=== PATIENT | female | born 1995 | race African-American/Black ===

== ENCOUNTER 2018-02-26 18:44 | Emergency (ER) | payer BC, OTHER ==
[~2018-02-26] VITALS: Ht 170.2 cm; Wt 77.0 kg
[2018-02-26 18:51] VITALS: TEMP 37.1; Ht 170.2 cm; Wt 77.0 kg
--- NOTE | 2018-02-26 20:19 | DIAGNOSTIC IMAGING REPORT ---
CHEST 2 VIEWS ROUTINE CLINICAL HISTORY: Cough. Right back pain. Recent pneumonia. COMPARISON STUDY: No previous studies for comparison. FINDINGS: There is no pneumothorax or pleural effusion. Lung volumes are normal. Note is made of a 1.9 cm nodular airspace opacities within the right upper lobe with adjacent linear opacity. Cardiac size is normal. Mediastinal contours are normal. There is no evidence for pulmonary edema. IMPRESSION: 1.9 cm nodular airspace opacity within the right upper lobe with adjacent linear opacity. A small focus of pneumonia is favored. Radiographic follow up to ensure resolution is recommended to exclude the less likely possibility of a pulmonary nodule. Electronically signed by: Earl Alvarenga M.D. 02/26/2018 8:18 PM Dictated Date/Time: 02/26/2018 8:13 PM
[2018-02-26] MEDS ORDERED: DOXYCYCLINE HYCLATE 100 MG CAP PO STA (20:20)
[2018-02-26] MEDS ORDERED: DOXY100C76 PO (20:30)
--- NOTE | 2018-02-26 20:30 | EMERGENCY ROOM VISIT NOTE ---
History First contact with patient: 18:53 Chief Complaint: COUGH Stated Complaint: COUGHING PAIN IN BACK Nursing Triage Summary: PT presents with cough X 3 days, with sore throat. PT denies any mucous production, also has intermittent fever. lungs CTA at this time. History of Present Illness Patient is a 22-year-old female who presents the emergency department for evaluation of a cough and right back pain that started about 2 or 3 days ago. Patient reports that she was treated for pneumonia earlier this summer, she states between the end of November and January. She was apparently fairly ill on initial presentation and required hospitalization. She is unsure of the antibiotic regimen that she was treated with, and states that her symptoms did improve. She notes that she was supposed to have a follow-up chest x-ray to check to see if the pneumonia had cleared, but she did not have this prior to leaving [place] to return here to school. Patient also notes that she had her adenoids removed 1 week ago. She had some type of general anesthesia. She reports that the surgery was uncomplicated, and she was feeling well until she started to develop a dry, nonproductive cough in the last 2-3 days. She has pain in her right back with coughing, states that this is very similar to when she had pneumonia. She denies any chest pain, shortness of breath dyspnea on exertion or pleuritic pain with deep breathing. She has not documented any fevers. She rates her discomfort a 3/10. Review of Systems Review of systems as per HPI. All other systems reviewed were negative. 10 systems reviewed. Past Medical/Surgical History Medical Problems: (1) No Known Active Medical Problems Surgical Problems: (1) History of adenoidectomy Electronic medical records are reviewed and summarized as above/below. See Problem List. Social History Smoking Status: Never Smoker Alcohol Use: occasionally Housing Status: lives with roommate Occupation Status: [employer] Current/Historical Medications Scheduled Doxycycline Monohydrate (Monodox), 100 MG PO BID Physical Exam Vital Signs Date Time Temp Pulse Resp B/P (MAP) Pulse Ox O2 Delivery O2 Flow Rate FiO2 02/26/18 20:40 90 18 132/90 98 02/26/18 18:51 37.1 93 18 130/89 99 Room Air Physical Exam MENTAL STATUS: Patient is a pleasant, well-appearing 22-year-old female who is awake and alert and in no acute distress. Scant dry cough is noted. No conversational dyspnea. HEAD: Atraumatic, without temporal or scalp tenderness. EYES: PERRL, EOMI, no discharge or injection. EARS: Tympanic membranes intact, not inflamed, have normal contour. External canals clear. NOSE: Nares patent, turbinates edematous and boggy with clear rhinorrhea. MOUTH: Mucous membranes moist, no lesions, tongue and gums appear normal. THROAT: No pharyngeal injection, exudates, or tonsillar hypertrophy. Airway is patent. NECK: Supple, nontender, no lymphadenopathy. HEART: Regular rate and rhythm without murmurs, ectopy, gallops, or rubs. LUNGS: Clear to auscultation and breath sounds equal, no wheezes, rales, or rhonchi. SKIN: Normal. NEUROLOGICAL: Sensory and motor functions grossly intact. Normal gait. Medical Decision & Procedures ER Provider Diagnostic Interpretation: CHEST 2 VIEWS ROUTINE CLINICAL HISTORY: Cough. Right back pain. Recent pneumonia. COMPARISON STUDY: No previous studies for comparison. FINDINGS: There is no pneumothorax or pleural effusion. Lung volumes are normal. Note is made of a 1.9 cm nodular airspace opacities within the right upper lobe with adjacent linear opacity. Cardiac size is normal. Mediastinal contours are normal. There is no evidence for pulmonary edema. IMPRESSION: 1.9 cm nodular airspace opacity within the right upper lobe with adjacent linear opacity. A small focus of pneumonia is favored. Radiographic follow up to ensure resolution is recommended to exclude the less likely possibility of a pulmonary nodule. Medications Administered Medications (Trade) Dose Ordered Sig/Alex Route Start Time Stop Time Status Last Admin Dose Admin Doxycycline Hyclate (Vibramycin Cap) 100 mg NOW STAT PO 02/26/18 20:20 02/26/18 20:21 DC 02/26/18 20:29 100 MG ED Course The patient was seen and assessed as above. She is 1 week status post adenoidectomy, after being treated for pneumonia earlier this summer. She has a dry, nonproductive cough and some right upper back pain. She did not have any anterior chest pain, shortness of breath, dyspnea on exertion or pleuritic pain. She is concerned about the possibility of another bout of pneumonia. Chest x-ray was obtained and was as noted above. Certainly there are no old for comparison, but given the clinical concern, she will be placed on doxycycline. Patient is completely unable to recall any of the antibiotics she was placed on earlier this summer. She also states that she is currently finishing an antibiotic from her ENT surgeon but does not know what that is either. Nonetheless, she was encouraged to finish the antibiotic from the ENT surgeon and to take the doxycycline as prescribed. She was strongly encouraged to follow-up with [facility] for recheck later this week, but was welcome to return to the emergency department at any point for worsening symptoms. She was given a copy of her chest x-ray for follow-up purposes. She was encouraged to have a repeat chest x-ray to ensure resolution. Differential diagnoses also entertained included musculoskeletal pain, intercostal neuritis, rib fracture, rib contusion, pneumonia, bronchitis, pulmonary embolism, among others. Medical Decision See emergency department course. Medication Reconcilliation Current Medication List: was personally reviewed by me Blood Pressure Screening Patient's blood pressure: Normal blood pressure Blood pressure disposition: Did not require urgent referral Impression Primary Impression: Right upper lobe pneumonia Departure Information Prescriptions Doxycycline Monohydrate (Monodox) 100 Mg Cap 100 MG PO BID, #14 CAP Prov: Merary Schulz PA 02/26/18 Patient Instructions My [facility] Additional Instructions Doxycycline 100mg: Take one pill twice daily for seven days for your infection. Take with food, but avoid dairy. Avoid prolonged sun exposure since this medication makes you temporarily more susceptible to sunburns. All antibiotics can cause diarrhea. If this occurs and you feel worse or it does not resolve in 1-2 days follow up with your doctor or return to the Emergency Department as this could be signs of serious underlying problems. Any medication can cause an allergic reaction, stop the pills immediately and return to the ER for rash, hives, breathing difficulties, or swelling. Ibuprofen(Motrin, Advil) may be used for fever or pain. Use 600mg every six hours as needed. Take with food. Avoid using more than 2400mg in a 24 hour period. Do not use 2400mg per day for more than three consecutive days without physician direction. Prolonged inappropriate use can lead to stomach upset or ulcers. This is available over the counter and typically comes in 200mg tablets. (AND/OR) Acetaminophen(Tylenol) may be used for fever or pain. Use 1000mg every eight hours as needed. Avoid using more than 3000mg in a 24 hour period. This is available over the counter. Controlling your fever with Tylenol and Ibuprofen as above will make you feel better. Rest and drink plenty of fluids. Avoid strenuous activity until your symptoms resolve and your breathing returns to normal. Continue current medications. Return to the ER for chest pain, difficulty breathing, persistent fevers, vomiting, worsening of your condition, or as needed Follow up with S this week for recheck. Problem Qualifiers Primary Impression: Right upper lobe pneumonia Pneumonia type: due to unspecified organism Qualified Codes: J18.1 - Lobar pneumonia, unspecified organism
[2018-02-26 20:40] VITALS: BP 132/90; PULSE 90; O2SAT 98
--- NOTE | 2018-02-27 19:26 | EMERGENCY ROOM VISIT NOTE ---
ED Visit Note The patient presented back to the emergency department on February 27 at approximately 1900 hrs. She was seen yesterday and an x-ray was performed and was concerning for a possible right upper lobe pneumonia. The patient had a prior bout of pneumonia and she was treated in the hospital. She had records that indicated she was on Rocephin and Zithromax. She also received Levaquin. The patient did not know her antibiotics at the visit yesterday. She was placed on doxycycline. The patient's aunt who is an ICU nurse notified us that she was on doxycycline as an outpatient prior to being hospitalized. The patient states that she had symptoms for quite some time and then started the doxycycline when she was already very sick. She worsened and required hospitalization. She also notes that she has been taking amoxicillin due to her recent adenoidectomy. She developed her respiratory symptoms 4 days ago, while on the amoxicillin. I discussed treatment options with the patient. She stated that she did well with the Zithromax at discharge. Patient and family were concerned that the doxycycline would not be adequate given the fact that she had required hospitalization over the summer. I did discuss antibiotic choices with her. Given that she developed symptoms while on the amoxicillin felt amoxicillin/Augmentin would not be appropriate. She would need atypical coverage. The doxycycline would provide this. For additional pneumonia coverage I discussed using Zithromax over Levaquin. I did have concerns and discuss this with the patient regarding tendon rupture as well as the other side effects from Levaquin. She was just on a course of Levaquin. She has no allergies or other contraindications to the antibiotic choices. I did inform her that she needs to have a follow-up chest x-ray in 3-4 weeks to ensure resolution and clearance. If she has any worsening symptoms, vomiting, difficulty breathing, pleuritic or other chest pain, or worsening of her condition she should present immediately back to the emergency department for reevaluation. She denied any current fever, abdominal pain, nausea, vomiting, leg swelling, prolonged immobilization or other issues. I gave my usual and customary discussion regarding this issue.
== END 2018-02-26 20:40 | disposition home or self-care (01) ==
LOC: C.EDB 18:46 → C.EDC 20:40
DX: J18.1 Lobar pneumonia, unspecified organism (principal); Z98.890 Other specified postprocedural states